=== PATIENT | female | born 1955 | race Caucasian/White ===

== ENCOUNTER 2016-11-01 10:42 | Emergency (ER) | payer OTHER ==
[~2016-11-01] VITALS: Ht 165.1 cm; Wt 108.9 kg
[2016-11-01 10:42] VITALS: BP 137/73
== END 2016-11-01 12:38 | disposition home or self-care (01) ==
LOC: ER 10:43
DX: J22 Unspecified acute lower respiratory infection (principal); I10 Essential (primary) hypertension
CPT/HCPCS: 71010; 99283; A4606; Z7610

== ENCOUNTER 2017-03-30 13:18 | Emergency (ER) | payer OTHER ==
[~2017-03-30] VITALS: Ht 165.1 cm; Wt 108.9 kg
[2017-03-30 13:18] VITALS: BP 156/77
== END 2017-03-30 14:09 | disposition home or self-care (01) ==
LOC: ER 13:23
DX: T81.30XA Disruption of wound, unspecified, initial encounter (principal); I10 Essential (primary) hypertension
CPT/HCPCS: 99282; A4606; Z7610